=== PATIENT | female | born 1975 | race Caucasian/White ===

== ENCOUNTER 2021-04-03 12:39 | Inpatient (IN) | payer OTHER ==
[2021-04-03 13:55] VITALS: BMI 24.8
[2021-04-03] MEDS ORDERED: MAG HYDROX/AL HYDROX/SIMETH 30 ML UNIT-DOSE CUP PO PRN (14:59)
[2021-04-03] MEDS ORDERED: MAGNESIUM HYDROX 2400MG/30ML ORAL SUSPENSION 30 ML CUP PO PRN (14:59)
[2021-04-03] MEDS ORDERED: P-EPHED 60MG/TRIPROLIDI 2.5MG TABLET PO PRN (14:59)
[2021-04-03] MEDS ORDERED: MAGNESIUM CITRATE 300 ML BOTTLE PO PRN (14:59)
[2021-04-03] MEDS ORDERED: guaiFENesin 200 MG/10 ML 10 ML UNIT-DOSE CUPS PO PRN (14:59)
[2021-04-03] MEDS ORDERED: LOPERAMIDE HCL 2 MG CAPSULE PO PRN (14:59)
[2021-04-03] MEDS: THIAMINE HCL 100 MG TABLET (FP) PO SCH (21:53)
[2021-04-03] MEDS: hydrOXYzine PAMOATE 25 MG CAPSULE (FP) PO PRN (21:54)
[2021-04-03] MEDS ORDERED: MELATONIN 5 MG TABLETS PO SCH (22:00)
[2021-04-03] MEDS ORDERED: risperiDONE 2 MG TABLET PO SCH (22:00)
[2021-04-04] MEDS: FLUoxetine HCL 20 MG CAPSULE PO SCH (10:30)
[2021-04-04] MEDS: PANTOPRAZOLE 40 MG TABLET PO SCH (10:30)
[2021-04-04] MEDS: FOLIC ACID 1 MG TABLET (FP) PO SCH (10:30)
[2021-04-04] MEDS: FERROUS SO4 325 MG TABLET (FP) PO SCH (10:30)
[2021-04-04] MEDS: PRENATAL VITAMINS W/ FOLIC ACID TABLET (FP) PO SCH (10:31)
[2021-04-04 12:37] LABS: HEMATOCRIT 35.1 % (32.4-45.2); HEMOGLOBIN 11.8 GM/dL (10.7-15.3); MCH 27.6 pg (25.7-33.7); MCHC 33.5 g/dl (32.0-36.0); MEAN CELL VOLUME 82.3 fl (80-96); MEAN PLT VOLUME 8.7 fl (7.5-11.1); PLATELET COUNT 120 10^3/uL (134-434); RBC 4.26 M/mm3 (3.60-5.2); RDW 24.7 % (11.6-15.6); WHITE BLOOD COUNT 9.9 K/mm3 (4.0-10.0)
[2021-04-04 12:43] LABS: CALCIUM 8.8 mg/dL (8.5-10.1)
[2021-04-04 12:44] LABS: ALBUMIN 3.4 g/dl (3.4-5.0); BLOOD UREA NITROGEN 11.2 mg/dL (7-18)
[2021-04-04 12:47] LABS: CREATININE 0.9 mg/dL (0.55-1.3)
[2021-04-04 12:48] LABS: BILIRUBIN,TOTAL 0.4 mg/dL (0.2-1); TOT PROT 7.5 g/dl (6.4-8.2)
[2021-04-04 13:09] LABS: SYPHILIS W/ RPR CONF NON-REACTIVE (NONREACTIVE)
[2021-04-04] MEDS ORDERED: PT OWN MED DRAWER 7, Y5N ONE ×3 (18:53→21:30)
[2021-04-04] MEDS: ALBUTEROL SO4 HFA INHALER IH PRN (18:54)
[2021-04-04] MEDS: MELATONIN 5 MG TABLETS PO SCH (21:28)
[2021-04-04] MEDS: risperiDONE 2 MG TABLET PO SCH (21:30)
[2021-04-04] MEDS: THIAMINE HCL 100 MG TABLET (FP) PO SCH (21:31)
[2021-04-04] MEDS ORDERED: OLANZapine 10 MG TABLET PO SCH (22:00)
[2021-04-05] MEDS: PRENATAL VITAMINS W/ FOLIC ACID TABLET (FP) PO SCH (10:23)
[2021-04-05] MEDS: FLUoxetine HCL 20 MG CAPSULE PO SCH (10:24)
[2021-04-05] MEDS: PANTOPRAZOLE 40 MG TABLET PO SCH (10:24)
[2021-04-05] MEDS: FERROUS SO4 325 MG TABLET (FP) PO SCH (10:24)
[2021-04-05] MEDS: FOLIC ACID 1 MG TABLET (FP) PO SCH (10:24)
[2021-04-05] MEDS ORDERED: PT OWN MED DRAWER 7, Y5N ONE (20:19)
[2021-04-05] MEDS: MELATONIN 5 MG TABLETS PO SCH (21:32)
[2021-04-05] MEDS: risperiDONE 2 MG TABLET PO SCH (21:32)
[2021-04-05] MEDS: THIAMINE HCL 100 MG TABLET (FP) PO SCH (21:32)
[2021-04-05] MEDS: ALBUTEROL SO4 HFA INHALER IH PRN (21:33)
[2021-04-05 22:23] LABS: PH,URINE 6.5 (5.0-8.0); URINE APPEARANCE CLEAR; URINE BILIRUBIN NEGATIVE (NEGATIVE); URINE COLOR YELLOW; URINE GLUCOSE (UA) NEGATIVE (NEGATIVE); URINE KETONE NEGATIVE (NEGATIVE); URINE LEUK ESTERASE NEGATIVE (NEGATIVE); URINE NITRITE NEGATIVE (NEGATIVE); URINE PROTEIN NEGATIVE (NEGATIVE); URINE UROBILINOGEN 0.2 mg/dL (0.2-1.0)
[2021-04-06] MEDS: FLUoxetine HCL 20 MG CAPSULE PO SCH (10:28)
[2021-04-06] MEDS: ALBUTEROL SO4 HFA INHALER IH PRN ×2 (10:28→21:44)
[2021-04-06] MEDS: PRENATAL VITAMINS W/ FOLIC ACID TABLET (FP) PO SCH (10:28)
[2021-04-06] MEDS: hydrOXYzine PAMOATE 25 MG CAPSULE (FP) PO PRN ×2 (10:29→21:43)
[2021-04-06] MEDS: FOLIC ACID 1 MG TABLET (FP) PO SCH (10:29)
[2021-04-06] MEDS: PANTOPRAZOLE 40 MG TABLET PO SCH (10:29)
[2021-04-06] MEDS: FERROUS SO4 325 MG TABLET (FP) PO SCH (10:29)
[2021-04-06] MEDS: MELATONIN 5 MG TABLETS PO SCH (21:42)
[2021-04-06] MEDS: THIAMINE HCL 100 MG TABLET (FP) PO SCH (21:43)
[2021-04-06] MEDS: risperiDONE 2 MG TABLET PO SCH (21:43)
[2021-04-07] MEDS ORDERED: PT OWN MED DRAWER 7, Y5N ONE (09:00)
[2021-04-07] MEDS: FLUoxetine HCL 20 MG CAPSULE PO SCH (10:03)
[2021-04-07] MEDS: FOLIC ACID 1 MG TABLET (FP) PO SCH (10:03)
[2021-04-07] MEDS: FERROUS SO4 325 MG TABLET (FP) PO SCH (10:03)
[2021-04-07] MEDS: PRENATAL VITAMINS W/ FOLIC ACID TABLET (FP) PO SCH (10:03)
[2021-04-07] MEDS: PANTOPRAZOLE 40 MG TABLET PO SCH (10:03)
[2021-04-07] MEDS ORDERED: METHOCARBAMOL 500 MG TABLET PO PRN (12:34)
[2021-04-07] MEDS: ACETAMINOPHEN 325 MG TABLET (FP) PO PRN (12:47)
[2021-04-07] MEDS: THIAMINE HCL 100 MG TABLET (FP) PO SCH (23:39)
[2021-04-07] MEDS: MELATONIN 5 MG TABLETS PO SCH (23:39)
[2021-04-07] MEDS: risperiDONE 2 MG TABLET PO SCH (23:39)
[2021-04-08] MEDS: PRENATAL VITAMINS W/ FOLIC ACID TABLET (FP) PO SCH (10:36)
[2021-04-08] MEDS: FLUoxetine HCL 20 MG CAPSULE PO SCH (10:37)
[2021-04-08] MEDS: PANTOPRAZOLE 40 MG TABLET PO SCH (10:37)
[2021-04-08] MEDS: FERROUS SO4 325 MG TABLET (FP) PO SCH (10:38)
[2021-04-08] MEDS: FOLIC ACID 1 MG TABLET (FP) PO SCH (10:38)
[2021-04-08] MEDS ORDERED: PT OWN MED DRAWER 7, Y5N ONE (20:53)
[2021-04-08] MEDS: MELATONIN 5 MG TABLETS PO SCH (21:46)
[2021-04-08] MEDS: risperiDONE 2 MG TABLET PO SCH (21:47)
[2021-04-08] MEDS: THIAMINE HCL 100 MG TABLET (FP) PO SCH (21:47)
[2021-04-09 07:31] VITALS: TEMP 97.1
[2021-04-09] MEDS ORDERED: hydrOXYzine PAMOATE 50 MG CAPSULE (FP) PO PRN (08:26)
[2021-04-09] MEDS: PANTOPRAZOLE 40 MG TABLET PO SCH (10:19)
[2021-04-09] MEDS: FOLIC ACID 1 MG TABLET (FP) PO SCH (10:19)
[2021-04-09] MEDS: FLUoxetine HCL 10 MG CAPSULE PO SCH (10:20)
[2021-04-09] MEDS: PRENATAL VITAMINS W/ FOLIC ACID TABLET (FP) PO SCH (10:21)
[2021-04-09] MEDS: FERROUS SO4 325 MG TABLET (FP) PO SCH (10:21)
[2021-04-09] MEDS: MELATONIN 5 MG TABLETS PO SCH (21:49)
[2021-04-09] MEDS: risperiDONE 2 MG TABLET PO SCH (21:49)
[2021-04-09] MEDS: THIAMINE HCL 100 MG TABLET (FP) PO SCH (21:49)
[2021-04-10 07:31] VITALS: BP 132/72; PULSE 93
[2021-04-10] MEDS: PRENATAL VITAMINS W/ FOLIC ACID TABLET (FP) PO SCH (10:01)
[2021-04-10] MEDS: FOLIC ACID 1 MG TABLET (FP) PO SCH (10:01)
[2021-04-10] MEDS: PANTOPRAZOLE 40 MG TABLET PO SCH (10:02)
[2021-04-10] MEDS: FLUoxetine HCL 10 MG CAPSULE PO SCH (10:02)
[2021-04-10] MEDS: FERROUS SO4 325 MG TABLET (FP) PO SCH (10:03)
[2021-04-10] MEDS: ACETAMINOPHEN 325 MG TABLET (FP) PO PRN (14:34)
== END 2021-04-10 15:25 | disposition home or self-care (01) | DRG 772 ==
LOC: YASAS 12:39 → Y5N 15:36
PROVIDERS: ADMIT Allergy & Immunology; ATTEND Allergy & Immunology
PROC: HZ42ZZZ Group Counseling for Substance Abuse Treatment, Cognitive-Behavioral (ICD-10-PCS; principal; 2021-04-03)
DX: F10.20 Alcohol dependence, uncomplicated (principal); F14.20 Cocaine dependence, uncomplicated; F12.20 Cannabis dependence, uncomplicated; F32.3 Major depressive disorder, single episode, severe with psychotic features; F19.282 Other psychoactive substance dependence with psychoactive substance-induced sleep disorder; F19.280 Other psychoactive substance dependence with psychoactive substance-induced anxiety disorder; F19.24 Other psychoactive substance dependence with psychoactive substance-induced mood disorder; F39 Unspecified mood [affective] disorder; D50.9 Iron deficiency anemia, unspecified; J45.909 Unspecified asthma, uncomplicated; K29.70 Gastritis, unspecified, without bleeding; R10.12 Left upper quadrant pain; Z91.013 Allergy to seafood
CPT/HCPCS: 36415; 80053; 81003; 81025; 85027; 86780; 86803; C9803; U0003; U0005

== ENCOUNTER 2021-04-07 15:13 | Emergency (ER) | payer OTHER ==
[2021-04-07 15:23] VITALS: TEMP 98.1; BMI 23.6
[2021-04-07] MEDS ORDERED: FAMOTIDINE 20 MG/50 ML IVPB 20 MG/50 ML MG IVPB ONE ×2 (15:51→16:06)
[2021-04-07] MEDS ORDERED: SODIUM CHLORIDE 0.9% 500 ML INFUS.BAG IV ONE (15:51)
[2021-04-07] MEDS ORDERED: LORazepam 2 MG/ML SDV VIAL IVPUSH ONE (16:02)
[2021-04-07] MEDS ORDERED: MAG HYDROX/AL HYDROX/SIMETH -MYLANTA- ORAL SUSPENSION PO ONE (16:03)
[2021-04-07] MEDS ORDERED: MAG HYDROX/AL HYDROX/SIMETH 30 ML UNIT-DOSE CUP ONE (16:05)
[2021-04-07] MEDS ORDERED: LORazepam 2 MG/ML SDV VIAL ONE (16:05)
[2021-04-07 16:37] LABS: BASO % 0.9 % (0-2.0); EOS % 2.1 % (0-4.5); HEMATOCRIT 35.6 % (32.4-45.2); MCH 27.8 pg (25.7-33.7); MCHC 33.8 g/dl (32.0-36.0); MEAN CELL VOLUME 82.2 fl (80-96); MEAN PLT VOLUME 8.4 fl (7.5-11.1); MONO % 9.3 % (3.8-10.2); NEUT % 66.7 % (42.8-82.8); PLATELET COUNT 278 10^3/uL (134-434); RBC 4.33 M/mm3 (3.60-5.2); RDW 23.6 % (11.6-15.6); WHITE BLOOD COUNT 8.1 K/mm3 (4.0-10.0)
[2021-04-07 16:57] LABS: CHLORIDE 108 mmol/L (98-107); SODIUM 140 mmol/L (136-145)
[2021-04-07 16:59] LABS: ALBUMIN 3.3 g/dl (3.4-5.0); BLOOD UREA NITROGEN 9.9 mg/dL (7-18); CALCIUM 8.9 mg/dL (8.5-10.1)
[2021-04-07 17:00] LABS: ANION GAP 4 MMOL/L (8-16); ANISOCYTOSIS 3+; CO2 28 mmol/L (21-32); GLUCOSE,RANDOM 90 mg/dL (74-106); LIPASE 99 U/L (73-393); MACROCYTOSIS 0; PLATELET ESTIMATE NORMAL
[2021-04-07 17:02] LABS: SGOT/AST 18 U/L (15-37); SGPT/ALT 18 U/L (13-61)
[2021-04-07 17:03] LABS: CREATININE 0.8 mg/dL (0.55-1.3)
[2021-04-07 17:04] LABS: BILIRUBIN,TOTAL 0.3 mg/dL (0.2-1); TOT PROT 7.5 g/dl (6.4-8.2)
[2021-04-07 17:05] LABS: ALK PHOS 72 U/L (45-117)
[2021-04-07 17:18] LABS: PH,URINE 8.5 (5.0-8.0); URINE APPEARANCE CLEAR; URINE BILIRUBIN NEGATIVE (NEGATIVE); URINE COLOR YELLOW; URINE GLUCOSE (UA) NEGATIVE (NEGATIVE); URINE KETONE NEGATIVE (NEGATIVE); URINE LEUK ESTERASE NEGATIVE (NEGATIVE); URINE NITRITE NEGATIVE (NEGATIVE); URINE PROTEIN NEGATIVE (NEGATIVE); URINE UROBILINOGEN 0.2 mg/dL (0.2-1.0)
[2021-04-08] MEDS ORDERED: risperiDONE 2 MG TABLET PO ONE (00:33)
[2021-04-08] MEDS ORDERED: risperiDONE 0.5 MG TABLET ONE (00:35)
[2021-04-08 01:30] VITALS: BP 138/93; PULSE 77
== END 2021-04-08 01:33 | disposition home or self-care (01) ==
LOC: JER 15:13
PROC: 3E033GC Introduction of Other Therapeutic Substance into Peripheral Vein, Percutaneous Approach (ICD-10-PCS; principal; 2021-04-07)
DX: K29.70 Gastritis, unspecified, without bleeding (principal)
CPT/HCPCS: 36415; 74177-TC; 80053; 81003; 82550; 83690; 84484; 84703; 85025; 87086; 93005; 93010; 99285-25; Q9967